=== PATIENT | female | born 1965 | race Caucasian/White ===

== ENCOUNTER 2023-08-23 12:58 | Emergency (ER) | payer BC, OTHER ==
[~2023-08-23] VITALS: Ht 157.5 cm; Wt 108.9 kg
[2023-08-23 13:42] VITALS: BP_SYST 170; PULSE 77; RESP 16; TEMP 97.5; O2SAT 97
[2023-08-23 13:50] VITALS: BP_SYST 170; PULSE 77; RESP 16; TEMP 97.5; O2SAT 97
== END 2023-08-23 17:11 | disposition home or self-care (01) ==
LOC: SED 12:58
DX: S90.121A Contusion of right lesser toe(s) without damage to nail, initial encounter (principal); M17.11 Unilateral primary osteoarthritis, right knee; M25.461 Effusion, right knee; Z79.899 Other long term (current) drug therapy; W10.8XXA Fall (on) (from) other stairs and steps, initial encounter; Y93.89 Activity, other specified; Y92.89 Other specified places as the place of occurrence of the external cause; Y99.8 Other external cause status
CPT/HCPCS: 73564; 99284